=== PATIENT | female | born 1940 | race Caucasian/White ===

== ENCOUNTER → 2017-05-26 | Outpatient (CLI) | payer OTHER, BC ==
[~2017-05-26] MED LIST: BENICAR PO
== END ==
LOC: RAD 11:43
DX: R06.00 Dyspnea, unspecified (principal); R06.02 Shortness of breath

== ENCOUNTER 2017-06-05 16:27 | Emergency (ER) | payer OTHER, BC | END 2017-06-05 19:40 | disposition home or self-care (01) | LOC: ER 16:27 | DX: S22.059A Unspecified fracture of T5-T6 vertebra, initial encounter for closed fracture (principal); S05.12XA Contusion of eyeball and orbital tissues, left eye, initial encounter; S09.90XA Unspecified injury of head, initial encounter; K21.9 Gastro-esophageal reflux disease without esophagitis; J45.909 Unspecified asthma, uncomplicated; Z91.041 Radiographic dye allergy status; W01.0XXA Fall on same level from slipping, tripping and stumbling without subsequent striking against object, initial encounter; Y93.01 Activity, walking, marching and hiking; Y92.89 Other specified places as the place of occurrence of the external cause; Y99.8 Other external cause status ==

== ENCOUNTER → 2019-03-09 | Outpatient (CLI) | payer OTHER, BC ==
[~2019-03-09] MED LIST changes: +ASPIR 8181 MG PO; +COREG6.25 MG PO; +HYDROCODONE-AP1 EAC6 PO; +LIPITOR10 MG PO; +PROAIR HFA8.5 GM; +SPIRIVA INH
--- NOTE | 2019-03-09 13:25 | EXE ---
[facility] [place] [address] STRESS ECHOCARDIOGRAM Name: MARLYS STALLINGS KYLE Room #: REG CL Alex#: [id number] ������������� Admission: 03/09/19 ������������� Attend Phys: Elías Agudelo, Discharge: ��� ������������� ��� Date of : 36 Date of Service: 03/09/19 1324 �� Report #: [id number] �������� ��������������������������������������������[id number] THIS REPORT FOR: //name// APPROVED REPORT Study performed: 03/09/2019 10:08:39 Exam: Dobutamine Stress Echo Indication: CAD Stress Nurse: Margret Calxito RN Status: routine Ht: 5 ft 4 in Medical History Medical History: CAD Medications: Carvedilol Cardiac Risk Factors: HTN Procedure The patient underwent a Pharmacological Stress Test using Dobutamine. Blood pressure, heart rate, and EKG were monitored. An Echocardiogram was performed by park maintenance technician in four stages in quad fashion. At peak stress, four selected images were obtained and placed side by side with resting images for comparison. Stress Test Details Stress Test: Pharmacological Stress Test using Dobutamine. HR Resting HR: 68 bpm Max Heart Rate (APMHR): 140 bpm Max HR Achieved: 129 bpm Target HR (85% APMHR): 119 bpm % of APMHR: 92 Recovery HR: 94 bpm HR response to stress: Normal HR response to stress BP Resting BP: 128/82 mmHg Max BP: 174/81 mmHg Recovery BP: 148/67 mmHg BP response to stress: Normal blood pressure response to stress. ECG Resting ECG: Sinus Rhythm Stress ECG: Sinus Tachycardia [facility] [address] [place] [address] STRESS ECHOCARDIOGRAM Name: MARLYS STALLINGS KYLE Room #: REG [facility]#: [id number] ������������� Admission: 03/09/19 ������������� Attend Phys: Elías Agudelo, Discharge: ��� ������������� ��� Date of : 36 Date of Service: 03/09/19 1324 �� Report #: [id number] �������� ��������������������������������������������[id number] ST Change: Upsloping ST depression Maximum ST Deviation: 0.5 mm Arrhythmia: None Recovery ECG: Sinus Rhythm Recovery ST Change: Upsloping ST depression Recovery ST Deviation: 0.5 mm Recovery Arrhythmia: None Clinical Reason for Termination: Completed protocol Exercise duration: 8 min 57 sec The patient tolerated dobutamine infusion without significant cardiac symptoms. Stress ECG Conclusion The baseline 12-lead EKG shows sinus rhythm without significant ST or T wave abnormality. With dobutamine infusion the patient has sinus rhythm and sinus tachycardia with 0.[address] segment depression that does not meet diagnostic criteria for ischemia. Pre-Stress Echo The resting Echocardiogram showed normal left ventricular contractility with an estimated Ejection Fraction of about 55-60%. Post-Stress Echo The stress Echocardiogram showed normal left ventricular contractility with an estimated Ejection Fraction of about >70%. Conclusion Clinical Response: Non-ischemic Stress ECG Response: Non-ischemic Stress Echo Images: Non-ischemic ��������������������������������������������� <ELECTRONICALLY SIGNED> ���������������������������������������� By: Elías Agudelo MD, FACC ��������������������������������������������� 03/09/19 1324 1324 1324 Elías Agudelo MD, FACC /INF
== END ==
LOC: CV 01-26 11:28
DX: I65.23 Occlusion and stenosis of bilateral carotid arteries (principal); I25.10 Atherosclerotic heart disease of native coronary artery without angina pectoris